=== PATIENT | female | born 2000 | race Caucasian/White ===

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

== ENCOUNTER 2020-06-14 18:03 | Emergency (ER) | payer OTHER ==
--- NOTE | 2020-06-14 18:15 | ER Document Report ---
ED General - General Chief Complaint: Knee Pain Stated Complaint: KNEE PAIN Time Seen by Provider: 06/14/20 18:06 Primary Care Provider: ERIN SAPP JR, DO [ACTIVE PROVISIONAL STAFF] - Follow up as needed TRAVEL OUTSIDE OF THE [place] IN LAST 30 DAYS: No - HPI Notes: Chief complaint: Left knee injury History of present illness: Previously healthy 20-year-old female states she was wrestling with her sister on the edge of a bed about 1 hour ago when she fell and injured her left knee. She said the kneecap dislocated and she found she was unable to flex or extend the knee joint. EMS was called and they established an IV line gave a dose of IV fentanyl and Zofran and immobilized patient with a pillow for transport. She denies any other injuries. She ate about 2 hours ago. No regular medications. No known allergies. No prior serious medical or surgical illnesses. Non-smoker. Consumes occasional social alcohol. Last normal menstrual period 1 week ago. - Related Data Allergies/Adverse Reactions: No Known Allergies Allergy (Unverified 11/27/18 07:33) Past Medical History - General Information source: Patient, Emergency Med Personnel, [facility] Records - Social History Smoking Status: Never Smoker Frequency of alcohol use: Occasional Drug Abuse: None Lives with: Family Family History: Reviewed & Not Pertinent - Medical History Medical History: Negative Renal/ Medical History: Denies: Hx Peritoneal Dialysis Surgical Hx: Negative Review of Systems - Review of Systems Notes: Constitutional: Negative for fever. HENT: Negative for sore throat. Eyes: Negative for visual changes. Cardiovascular: Negative for chest pain. Respiratory: Negative for shortness of breath. Gastrointestinal: Negative for abdominal pain, vomiting or diarrhea. Genitourinary: Negative for dysuria. Musculoskeletal: As per HPI. Skin: Negative for rash. Neurological: Negative for headaches, weakness or numbness. 10 point ROS negative except as marked above and in HPI. Physical Exam - Vital signs Vitals: Temp Pulse Resp BP Pulse Ox 98.0 F 82 16 100/63 100 06/14/20 18:10 06/14/20 18:10 06/14/20 18:10 06/14/20 18:10 06/14/20 18:10 - Notes Notes: GENERAL: Well-developed well-nourished female approximately stated age appearing in mild discomfort. SKIN: Good turgor no rashes. HEAD: Normocephalic atraumatic. EYES: PERRLA. EOMI. Conjunctivae and sclerae clear. EARS: CANALS AND TMS CLEAR. NOSE: CLEAR. MOUTH: Moist mucosa. Good dentition. No stridor or edema. No drooling. NECK: Supple. No masses or thyromegaly. No adenopathy. Carotids 2+ without bruits. No JVD. BACK: Symmetrical without tenderness. CHEST: Respirations unlabored. Breath sounds clear and symmetrical. HEART: Regular rhythm. No murmur gallop or rub. ABDOMEN: Soft nontender without masses, organomegaly or rebound. Bowel sounds normally active. No bruits. GENITALIA: Deferred. EXTREMITIES: Left knee is held in 30 degrees of flexion with pillow underneath for support. She is moderately tender around the patella and this appears to be displaced laterally. She resists motion of the knee joint secondary to pain. No calf tenderness. Cap refill less than 1.5 seconds. Dorsalis pedis and posterior tibial pulses 3+ and symmetrical. NEUROLOGICAL: GCS 15. Alert and oriented x3. Fluent speech. Cranial nerves II through XII intact. Sensorimotor and cerebellar normal. Normal tone. PSYCHIATRIC: Anxious affect. Course - Vital Signs Vital signs: Temp Pulse Resp BP Pulse Ox 98.0 F 78 17 121/72 100 06/14/20 18:10 06/14/20 19:29 06/14/20 19:29 06/14/20 19:29 06/14/20 19:29 Procedures - Conscious Sedation Conscious sedation Time started: 19:20 Time completed: 19:25 Consent obtained: Yes Indication: Closed reduction left patellar dislocation Last meal: Greater than 2 hours Emergent conditions applies.: E. - ASA Classification Normal healthy pt.: P1. - ASA Classification Airway Evaluation: Normal anatomy Mallampati Classification: Class 2 Used during procedure: Suction available, IV access obtained, Pulse ox on pt., punch press feeder on pt. Medications administered: Etomidate Reversal agents: None I personally performed/intraservice time: Sedation, Procedure, 30 min or less Complications: No - Immobilization Left Knee Time completed: 19:30 Pre-Proc Neuro Vasc Exam: Normal Immobilizer type: Crutches, Knee immobilizer Performed by: PCT Post-Proc Neuro Vasc Exam: Normal Alignment checked and good: Yes - Joint Reduction/Fracture Care Left Knee Consent obtained: Yes Conscious sedation: Yes Pre-procedure NV exam: Yes Manipulation comment: Gentle extension of left knee joint with lateral side patella pressure Post-procedure NV exam: Yes Post-reduction x-ray: Joint reduced Reduction attempts: 1 Complications: No Notes: 06/14/20 19:26 Confirmatory film post reduction. Knee immobilizer applied. Crutches provided. Discharge - Discharge Clinical Impression: Patellar dislocation left Condition: Stable Disposition: HOME, SELF-CARE Instructions: Use of Crutches ([facility]), Ice & Elevation ([facility]), Knee Immobilizing Splint ([facility]) Additional Instructions: Dislocation of the Patella You have had a dislocation of the patella -- the kneecap has slipped out of its "track" in the front of the knee. Often it becomes stuck on the outer side of the knee. The usual treatment is ice packs, temporary splinting, and rest of the leg until pain subsides. After a kneecap dislocation, the knee must be protected so that the injured fibers around the kneecap can heal. A splint is usually used for the first dislocation. As healing progresses, you'll be allowed to move the knee, but you should not squat down or twist on bent knees. Recurrent dislocations are common. Chronic pain behind the kneecap can also occur. You should consult an edi specialist if you have continued problems after this injury. You should return if swelling of the knee causes severe pain, or if numbness, pain, or muscle weakness develop below the knee. Knee Immobilizing Splint The knee immobilizing splint will protect the injury while healing begins. This type of splint does not allow the knee to bend at all. No running or sports will be possible. If the splint allows painfree walking, it's giving adequate protection. If there is still significant pain, crutches may be needed as well. Don't do anything that hurts. Adjusted the splint, if necessary. The stiffeners on the sides are attached with Velcro, so they can be easily moved to adjust for thigh and calf s ize. If you need help with these adjustments, come back. You will lose muscle strength in the thigh while using this splint. The doctor will advise you if it's safe to do isometric knee exercises while you use it. Prescriptions: Naproxen 500 mg PO BID PRN #14 tablet PRN Reason: Referrals: ERIN SAPP JR, DO [ACTIVE PROVISIONAL STAFF] - Follow up as needed
[2020-06-14] MEDS ORDERED: METOCLOPRAMIDE HCL INJ/PF 10 MG/2 ML SDV IV ONE (18:37)
[2020-06-14] MEDS ORDERED: ETOMIDATE INJ/PF 20 MG/10 ML SDV IV ONE (18:38)
[2020-06-14] MEDS ORDERED: FENTANYL CITRATE INJ/PF 100 MCG/2 ML AMPUL IV ONE (18:51)
--- NOTE | 2020-06-14 18:55 | RADIOLOGY REPORT (SQ) ---
EXAM DESCRIPTION: KNEE LEFT 3 VIEWS IMAGES COMPLETED DATE/TIME: 06/14/2020 6:30 pm REASON FOR STUDY: injury COMPARISON: None. NUMBER OF VIEWS: Three views. TECHNIQUE: AP, lateral, and sunrise patella radiographic images acquired of the left knee. LIMITATIONS: None. FINDINGS: MINERALIZATION: Normal. BONES: Lateral dislocation of the patella without demonstrated fracture. JOINT: A joint effusion is present. SOFT TISSUES: Soft tissue swelling overlies the injury site. OTHER: No other significant finding. IMPRESSION: Lateral dislocation of the patella without demonstrated fracture. TECHNICAL DOCUMENTATION: JOB ID: [id number] 2010 [employer]- All Rights Reserved Reading location - IP/workstation name: [email or web address]
[2020-06-14 19:42] VITALS: BP 112/70
--- NOTE | 2020-06-14 19:43 | RADIOLOGY REPORT (SQ) ---
EXAM DESCRIPTION: KNEE LEFT 2 VIEWS IMAGES COMPLETED DATE/TIME: 06/14/2020 7:32 pm REASON FOR STUDY: Post reduction patellar dislocation COMPARISON: 06/14/2020 NUMBER OF VIEWS: Two views. TECHNIQUE: AP and lateral radiographic images acquired of the left knee. LIMITATIONS: None. FINDINGS: MINERALIZATION: Normal. BONES: The patella dislocation has been reduced. There is no fracture. JOINT: There is a joint effusion. SOFT TISSUES: No soft tissue swelling. No radio-opaque foreign body. OTHER: No other significant finding. IMPRESSION: Successful reduction. Joint effusion. TECHNICAL DOCUMENTATION: JOB ID: [id number] 2010 [employer]- All Rights Reserved Reading location - IP/workstation name: [email or web address]
== END 2020-06-14 20:07 | disposition home or self-care (01) ==
LOC: ER 18:03
PROC: 0SSDXZZ Reposition Left Knee Joint, External Approach (ICD-10-PCS; principal; 2020-06-14)
DX: S83.005A Unspecified dislocation of left patella, initial encounter (principal); M25.562 Pain in left knee; W06.XXXA Fall from bed, initial encounter
CPT/HCPCS: 99285; 99152; 96374; 96375; 73560; 73562; 27550; J3010; J2765; J3490